=== PATIENT | female | born 2005 | race Caucasian/White ===

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

== ENCOUNTER 2025-04-26 11:34 | Emergency (ER) | payer SELFPAY ==
[~2025-04-26] VITALS: Ht 165.1 cm; Wt 64.5 kg
[~2025-04-26 11:34] MED LIST changes: -CEPH-558 PO; +DOXY-354 PO; +IBUP-1493 PO; -PHEN-674 PO
[2025-04-26 11:45] VITALS: BP 115/69; PULSE 69; RESP 17; TEMP 98.2; O2SAT 99
[2025-04-26] MEDS ORDERED: DIPH-1243 PO (12:05)
[2025-04-26] MEDS ORDERED: PRED-554 PO (12:05)
== END 2025-04-26 12:48 | disposition home or self-care (01) ==
LOC: EMS 11:34
DX: R21 Rash and other nonspecific skin eruption (principal); T45.0X5A Adverse effect of antiallergic and antiemetic drugs, initial encounter; Y92.89 Other specified places as the place of occurrence of the external cause; Z88.0 Allergy status to penicillin; Z91.030 Bee allergy status; Z79.899 Other long term (current) drug therapy; Z91.011 Allergy to milk products; Z91.018 Allergy to other foods
CPT/HCPCS: 99283; J7512

== ENCOUNTER 2025-06-30 10:55 | Emergency (ER) | payer MEDICAID ==
[~2025-06-30] VITALS: Ht 170.2 cm; Wt 59.1 kg
[~2025-06-30 10:55] MED LIST changes: +DIPH-1243 PO; +PRED-554 PO
[2025-06-30 11:22] VITALS: TEMP 98.6
[2025-06-30 11:55] LABS: COVID AG,FIA SOURCE NASAL SWAB
[2025-06-30 12:38] LABS: SARS-COV2 (COVID) ANTIGEN,FIA Negative (Negative)
[2025-06-30 12:39] LABS: INFLUENZA TYPE A NEGATIVE FOR TYPE A (NEGATIVE); INFLUENZA TYPE B NEGATIVE FOR TYPE B (NEGATIVE)
[2025-06-30] MEDS ORDERED: ACET-2080 PO (13:56)
[2025-06-30] MEDS ORDERED: ACYC15OI8 TP (13:56)
[2025-06-30] MEDS ORDERED: GUAIFDM PO (13:56)
[2025-06-30] MEDS ORDERED: IBUP-1554 PO (13:56)
[2025-06-30] MEDS: IBUPROFEN 600 MG TABLET PO ONE (14:08)
[2025-06-30] MEDS: ACETAMINOPHEN/CODEINE 300-30 MG TABLET PO ONE (14:08)
[2025-06-30 14:16] VITALS: BP 102/68; PULSE 90; RESP 16; O2SAT 99
== END 2025-06-30 14:17 | disposition home or self-care (01) ==
LOC: EMS 10:59
DX: J06.9 Acute upper respiratory infection, unspecified (principal); R59.9 Enlarged lymph nodes, unspecified; R68.83 Chills (without fever); K12.1 Other forms of stomatitis; F12.90 Cannabis use, unspecified, uncomplicated; Z79.52 Long term (current) use of systemic steroids; Z88.0 Allergy status to penicillin; Z91.0110 Allergy to milk products, unspecified; Z91.030 Bee allergy status; Z20.822 Contact with and (suspected) exposure to COVID-19
CPT/HCPCS: 87804; 99283